=== PATIENT | female | born 1985 | race Two or more races ===

== ENCOUNTER 2024-01-08 22:38 | Emergency (ER) | payer OTHER ==
[~2024-01-08] VITALS: Ht 165.1 cm; Wt 74.8 kg
[2024-01-08 23:38] VITALS: TEMP 98.4
[2024-01-09] MEDS ORDERED: CLIN300C12 PO (00:31)
[2024-01-09] MEDS ORDERED: CLINDAMYCIN HCL 150 MG CAPSULE ONE (00:36)
[2024-01-09] MEDS: CLINDAMYCIN HCL 150 MG CAPSULE PO ONE (00:47)
[2024-01-09 00:48] VITALS: BP 155/101; O2SAT 97
== END 2024-01-09 00:49 | disposition home or self-care (01) ==
LOC: ER 22:53
DX: R04.0 Epistaxis (principal); Z88.0 Allergy status to penicillin